=== PATIENT | female | born 1975 | race African-American/Black ===

== ENCOUNTER 2016-10-13 19:07 | Emergency (ER) | payer SELFPAY ==
[~2016-10-13 19:07] MED LIST: PERC5TAB12 PO; PREN1TAB30
[2016-10-13 19:09] VITALS: BP 185/97; PULSE 99; RESP 16; TEMP 99.2; O2SAT 100
[2016-10-13 20:49] LABS: BACTERIA, URINE RARE /hpf; BLOOD, URINE LARGE (NEG); COMMENT (UR) CULTURE INDICATED; CULTURE IF INDICATED CULTURE INDICATED; GLUCOSE,URINE NEG (NEG); KETONE, URINE TRACE mg/dL (NEG); MUCUS URINE MOD /lpf (OCC); NITRITE,URINE POS (NEG); PH, URINE 5.5 (5.0-8.5); SQUAMOUS EPITHELIAL CELL URINE 2 /hpf (0-5); URINE COLOR YELLOW (YELLW/STRAW)
[2016-10-13] MEDS ORDERED: MACR100C2 PO (22:29)
--- NOTE | 2016-10-13 22:29 | PD ---
HPI Chief Complaint: Complaint Time Seen by Provider: 22:11 Travel History International Travel<30 days: No Contact w/Intl Traveler<30days: No Traveled to known affect area: No History of Present Illness HPI Patient is a 40 year old female who comes in complaining of urinary frequency, urgency and pain with urination. She says this has been going on for two days. She denies fever or chills. She denies nausea or vomiting. She denies vaginal discharge. [facility] Past Medical History Diminished Hearing: No Hypertension: Yes (DURING ) Immunizations Current: No ?: Unknown LMP: 09/18/16 : 4 Para: 4 Past Surgical History Section: Yes (X3) Gynecologic Surgery: Yes () Social History Alcohol Use: No Tobacco Use: No Substance Use: No Allergies-Medications (Allergen,Severity, Reaction): Coded Allergies: No Known Allergies (Verified , 10/13/16) Reported Meds & Prescriptions Reported Meds & Active Scripts Active Review of Systems General / Constitutional: No: Fever, Chills HENT: No: Headaches, Lightheadedness Cardiovascular: No: Chest Pain or Discomfort Respiratory: No: Shortness of Breath Gastrointestinal: No: Nausea, Vomiting, Abdominal Pain Genitourinary: Positive: Urgency, Frequency, Dysuria, Flank Pain Skin: No Rash, No Change in Pigmentation Neurologic: No: Weakness, Dizziness Physical Exam Narrative GENERAL: Awake and alert, no acute distress. SKIN: Focused skin assessment warm/dry. HEAD: Atraumatic. Normocephalic. EYES: Pupils equal and round. No scleral icterus. ENT: No nasal bleeding or discharge. Mucous membranes pink and moist. CARDIOVASCULAR: Regular rate and rhythm. No murmur appreciated. RESPIRATORY: No accessory muscle use. Clear to auscultation. Breath sounds equal bilaterally. GASTROINTESTINAL: Abdomen soft, non-tender, nondistended. Hepatic and splenic margins not palpable. No CVA tenderness. NEUROLOGICAL: Awake and alert. No obvious cranial nerve deficits. Motor grossly within normal limits. Normal speech. Data Data Last Documented VS Vital Signs Date Time Temp Pulse Resp B/P (MAP) Pulse Ox O2 Delivery O2 Flow Rate FiO2 10/13/16 19:09 99.2 99 16 185/97 (126) 100 Room Air Orders Orders Urinalysis - C+S If Indicated (10/13/16 20:04) Ed Urine Pregnancytest Poc (10/13/16 20:04) Urine Culture (10/13/16 20:08) Labs Laboratory Tests Test 10/13/16 20:08 Urine Color YELLOW Urine Turbidity HAZY Urine pH 5.5 Urine Specific [place] 1.032 Urine Protein 100 mg/dL Urine Glucose (UA) NEG mg/dL Urine Ketones TRACE mg/dL Urine Occult Blood LARGE Urine Nitrite POS Urine Bilirubin NEG Urine Urobilinogen 2.0 MG/DL Urine Leukocyte Esterase LARGE Urine RBC 20 /hpf Urine WBC 154 /hpf Urine Squamous Epithelial Cells 2 /hpf Urine Amorphous Sediment RARE Urine Bacteria RARE /hpf Urine Mucus MOD /lpf Microscopic Urinalysis Comment CULTURE INDICATED MDM Medical Decision Making Medical Screen Exam Complete: Yes Emergency Medical Condition: Yes Medical Record Reviewed: Yes Differential Diagnosis UTI versus pyelonephritis versus bacterial vaginosis Narrative Course Patient is a 40-year-old female comes in complaining of urinary frequency, urgency, dysuria. Exam shows no acute abnormalities. Urinalysis is positive for UTI. She'll be discharged with a prescription for Macrobid. She is advised follow-up with her doctor. Advised to return to the ED as needed for any worsening symptoms. Diagnosis Primary Impression: UTI (urinary tract infection) Qualified Codes: N30.00 - Acute cystitis without hematuria Patient Instructions: General Instructions, Urinary Tract Infection in Women ( ED) Additional Instructions: Drink plenty of fluids. Take all of your antibiotic. Return to the ED as needed for any worsening symptoms. Follow-up with her doctor. Scripts Nitrofurantoin Monohydrate Macrocrystals (Macrobid) 100 Mg Capsule 100 MG PO BID for Infection for 5 Days, CAP 0 Refills Prov: Rhiannon Kim MD 10/13/16 Disposition: 01 DISCHARGE HOME Condition: Stable Rhiannon Kim MD Oct 13, 2016 22:29
== END 2016-10-13 22:48 | disposition home or self-care (01) ==
LOC: NEPD 19:07
DX: N30.00 Acute cystitis without hematuria (principal); B96.20 Unspecified Escherichia coli [E. coli] as the cause of diseases classified elsewhere
CPT/HCPCS: 81001; 84703; 87077; 87086; 87186; 99283

== ENCOUNTER 2017-05-19 12:38 | Emergency (ER) | payer MEDICAID ==
[~2017-05-19 12:38] MED LIST changes: +MACR100C2 PO; -PERC5TAB12 PO; -PREN1TAB30
[2017-05-19 13:56] LABS: AUTOMATED NEUTROPHIL # 4.2 TH/MM3 (1.8-7.7); BASOPHIL % 0.2 % (0.0-2.0); EOSINOPHIL # 0.1 TH/MM3 (0-0.4); EOSINOPHIL % 1.1 % (0.0-4.0); HEMATOCRIT 35.3 % (35.0-46.0); LYMPH % 19.4 % (9.0-44.0); LYMPHOCYTE # 1.1 TH/MM3 (1.0-4.8); MEAN CELL VOLUME 83.5 FL (80.0-100.0); MEAN CORPUSCULAR HEMOGLOBIN 28.3 PG (27.0-34.0); MEAN CORPUSCULAR HGB CONC 33.9 % (32.0-36.0); MEAN PLATELET VOLUME 7.6 FL (7.0-11.0); MONO % 6.7 % (0.0-8.0); MONOCYTE # 0.4 TH/MM3 (0-0.9); NEUT % 72.6 % (16.0-70.0); PLATELET COUNT 200 TH/MM3 (150-450); RED BLOOD COUNT 4.23 MIL/MM3 (4.00-5.30); RED CELL DISTRIBUTION WIDTH 18.9 % (11.6-17.2); WHITE BLOOD COUNT 5.8 TH/MM3 (4.0-11.0)
[2017-05-19 14:19] LABS: AST (GOT) 12 U/L (15-37); BICARBONATE 23.9 MEQ/L (21.0-32.0); BLOOD UREA NITROGEN 4 MG/DL (7-18); CALCIUM 8.4 MG/DL (8.5-10.1); CHLORIDE 105 MEQ/L (98-107); CREATININE 0.54 MG/DL (0.50-1.00); GLOMERULAR FILTRATION RATE 151 ML/MIN (>89); GLUCOSE,RANDOM 82 MG/DL (74-106); SODIUM (NA) 138 MEQ/L (136-145)
[2017-05-19 14:21] LABS: ALT (GPT) 12 U/L (10-53)
[2017-05-19 14:23] LABS: ALKALINE PHOSPHATASE 72 U/L (45-117); TOTAL BILIRUBIN ADULT 0.6 MG/DL (0.2-1.0); TOTAL PROTEIN 7.3 GM/DL (6.4-8.2)
--- NOTE | 2017-05-19 15:13 | PD ---
HPI Chief Complaint increased bp Date Seen: May 19, 2017 Time Seen: 15:06 Travel History International Travel<30 Days: No Contact w/Intl Traveler<30Days: No Known Affected Area: No History of Present Illness HPI pt. is a @ 30 5/[address] Sena's office 2/2 increased bp. pt. was seen and noted to have bp's 150's/90's. pt. w/o c/o. no quinones/ visual changes, no cp/sob, no n/v, no urinary probs.+FM, no lof/vb, no ctxs. Weeks Gestation: 30 Para: 5 : 6 Last Menstrual Period: May 19, 2017 History Past Medical History Medical History: Denies Significant Hx Obstetric History Obstetric History , x 1, cd x4 Past Surgical History Narrative Surgical x 4 Family History Family History: Negative Social History Alcohol Use: No Tobacco Use: No Substance Abuse: No Allergies-Medications (Allergen,Severity, Reaction): Coded Allergies: No Known Allergies (Verified , 10/13/16) Home Meds Active Scripts Nitrofurantoin Monohydrate Macrocrystals (Macrobid) 100 Mg Capsule, 100 MG PO BID for Infection for 5 Days, CAP 0 Refills Prov:Rhiannon Kim MD 10/13/16 Review of Systems Except as stated in HPI: all other systems reviewed are Neg Physical Exam Narrative GENERAL: Well-nourished, well-developed patient. SKIN: Warm and dry. HEAD: Normocephalic and atraumatic. EYES: No scleral icterus. No injection or drainage. ENT: No nasal drainage noted. Mucous membranes pink. Airway patent. NECK: Supple, trachea midline. No JVD. CARDIOVASCULAR: Regular rate and rhythm without murmurs, gallops, or rubs. RESPIRATORY: Breath sounds equal bilaterally. No accessory muscle use. ABDOMEN/GI: Abdomen soft, non-tender, bowel sounds present, no rebound, no guarding Gravid FHT's: Category: 1 Reactive:+ Variability: mod EXTREMITIES: No cyanosis or edema. BACK: Nontender without obvious deformity. No CVA tenderness. NEUROLOGICAL: Awake and alert. Motor and sensory grossly within normal limits. Five out of 5 muscle strength in all muscle groups. Normal speech. Data Data Vital Signs Reviewed: Yes Orders Orders Complete Blood Count With Diff (05/19/17 13:36) Comprehensive Metabolic Panel (05/19/17 13:36) Uric Acid (05/19/17 13:36) Protein Creat Ratio, Random Ur (05/19/17 13:36) Materials Supervisor Clear For Discharge (05/19/17 ) Labs Laboratory Tests Test 05/19/17 12:55 05/19/17 13:35 Urine Random Creatinine 181 Urine Random Total Protein 31 Urine Protein/Creatinine Ratio 0.17 White Blood Count 5.8 Red Blood Count 4.23 Hemoglobin 12.0 Hematocrit 35.3 Mean Corpuscular Volume 83.5 Mean Corpuscular Hemoglobin 28.3 Mean Corpuscular Hemoglobin Concent 33.9 Red Cell Distribution Width 18.9 Platelet Count 200 Mean Platelet Volume 7.6 Neutrophils (%) (Auto) 72.6 Lymphocytes (%) (Auto) 19.4 Monocytes (%) (Auto) 6.7 Eosinophils (%) (Auto) 1.1 Basophils (%) (Auto) 0.2 Neutrophils # (Auto) 4.2 Lymphocytes # (Auto) 1.1 Monocytes # (Auto) 0.4 Eosinophils # (Auto) 0.1 Basophils # (Auto) 0.0 CBC Comment DIFF FINAL Differential Comment Blood Urea Nitrogen 4 Creatinine 0.54 Random Glucose 82 Total Protein 7.3 Albumin 3.0 Calcium Level 8.4 Uric Acid 3.1 Alkaline Phosphatase 72 Aspartate Amino Transf (AST/SGOT) 12 Alanine Aminotransferase (ALT/SGPT) 12 Total Bilirubin 0.6 Sodium Level 138 Potassium Level 3.0 Chloride Level 105 Carbon Dioxide Level 23.9 Anion Gap 9 Estimat Glomerular Filtration Rate 151 MDM Medical Record Reviewed: Yes Plan pt. to be d/c to home. pt. w/ increased bp and will start on labetalol 100mg po bid. pt. also w/ low K+, will give kcl 40meq daily for 7 days. condition d/ w pt. all ? answered. pt. given precautions for return. f/u as sched. Diagnosis Diagnosis: Primary Impression: Hypertension affecting Additional Impression: 30 weeks gestation of Disposition: DISCHARGE HOME Patient Instructions: General Instructions Departure Forms: Tests/Procedures Jeromy Simms Jr., MD May 19, 2017 15:13
== END 2017-05-19 15:28 | disposition home or self-care (01) ==
LOC: HOBED 12:38
DX: O16.3 Unspecified maternal hypertension, third trimester (principal); Z3A.30 30 weeks gestation of pregnancy
CPT/HCPCS: 36415; 80053; 82570; 84156; 84550; 85025; 99283

== ENCOUNTER 2017-07-17 10:31 | Inpatient (IN) | payer MEDICAID ==
[~2017-07-17] VITALS: Ht 160 cm; Wt 108.0 kg
[2017-07-17] MEDS ORDERED: PREN29TA4 (11:34)
[2017-07-17] MEDS ORDERED: FERR325T18 PO (11:34)
[2017-07-17] MEDS ORDERED: ASPI-516 CHEW (11:34)
[2017-07-17] MEDS ORDERED: LABE100T2 PO ×2 (11:34→14:40)
[2017-07-17] MEDS ORDERED: CITRIC ACID-SODIUM CITRATE LIQ 30 ML UDC PO SCH (11:45)
[2017-07-17] MEDS ORDERED: ceFAZolin 2 GM PREMIX 50 ML IV SCH (11:45)
[2017-07-17] MEDS ORDERED: MORPHINE SULFATE PF 5 MG/10 ML VIAL ONE (11:52)
[2017-07-17] MEDS ORDERED: ACETAMINOPHEN 1000 MG/100 ML 100 ML IV ONE ×2 (11:52→13:45)
[2017-07-17 11:53] LABS: AUTOMATED NEUTROPHIL # 5.2 TH/MM3 (1.8-7.7); BASOPHIL % 0.3 % (0.0-2.0); EOSINOPHIL # 0.1 TH/MM3 (0-0.4); EOSINOPHIL % 0.8 % (0.0-4.0); HEMATOCRIT 38.6 % (35.0-46.0); HEMOGLOBIN 13.3 GM/DL (11.6-15.3); LYMPH % 22.2 % (9.0-44.0); LYMPHOCYTE # 1.6 TH/MM3 (1.0-4.8); MEAN CELL VOLUME 85.1 FL (80.0-100.0); MEAN CORPUSCULAR HEMOGLOBIN 29.2 PG (27.0-34.0); MEAN CORPUSCULAR HGB CONC 34.3 % (32.0-36.0); MEAN PLATELET VOLUME 8.2 FL (7.0-11.0); MONO % 6.6 % (0.0-8.0); MONOCYTE # 0.5 TH/MM3 (0-0.9); NEUT % 70.1 % (16.0-70.0); PLATELET COUNT 237 TH/MM3 (150-450); RED BLOOD COUNT 4.54 MIL/MM3 (4.00-5.30); RED CELL DISTRIBUTION WIDTH 14.6 % (11.6-17.2); WHITE BLOOD COUNT 7.4 TH/MM3 (4.0-11.0)
[2017-07-17] MEDS ORDERED: OXYTOCIN 10 UNIT/ML AMP IV ONE (12:00)
[2017-07-17] MEDS ORDERED: LACTATED RINGER'S 1000 ML IV ONE (12:00)
[2017-07-17] MEDS ORDERED: LACTATED RINGER'S 1000 ML INJ 2,000 ML IV ONE (12:00)
[2017-07-17] MEDS ORDERED: ONDANSETRON HCL 4 MG/2 ML VIAL IV ONE (12:00)
[2017-07-17] MEDS ORDERED: DEXAMETHASONE SOD PHOS 4 MG/ML VIAL IV ONE (12:00)
[2017-07-17] MEDS ORDERED: PHENYLEPH/NS 1000 MCG/10 ML SYR IV ONE (12:00)
[2017-07-17] MEDS ORDERED: LACTATED RINGER'S 1000 ML IV SCH (12:30)
[2017-07-17] MEDS ORDERED: ONDANSETRON ODT 4 MG TAB PO PRN (13:45)
[2017-07-17] MEDS ORDERED: SIMETHICONE 80 MG CHEWABLE TAB PO PRN (13:45)
[2017-07-17] MEDS ORDERED: SODIUM CHLORIDE 0.9% FLUSH 10 ML FLUSH IV FLUSH PRN (13:45)
[2017-07-17] MEDS ORDERED: OXYTOCIN 30 UNITS-500ML PREMIX 500 ML IV ONE (13:45)
[2017-07-17] MEDS ORDERED: ZOLPIDEM TARTRATE 5 MG TAB PO PRN (13:45)
[2017-07-17] MEDS ORDERED: oxyCODONE/ACETAMINOPHEN 5 MG/325 MG TAB PO PRN ×2 (13:45)
[2017-07-17] MEDS ORDERED: ACETAMINOPHEN 325 MG TAB PO PRN (13:45)
--- NOTE | 2017-07-17 13:58 | HHI.HP ---
HPI Chief Complaint Repeat Date Seen: Jul 17, 2017 Travel History International Travel<30 Days: No Contact w/Intl Traveler<30Days: No Known Affected Area: No History of Present Illness HPI Patient is a 41 year old at 39-1/7 weeks gestation who presents today for repeat . She denies any vaginal bleeding or discharge. No gush or leaking of fluid. She is feeling regular contractions. Positive movement. History Past Medical History Medical History: Denies Significant Hx Obstetric History Obstetric History s/p x 4 Past Surgical History Narrative Surgical x 4 Family History Family History: Negative Social History Alcohol Use: No Tobacco Use: No Substance Abuse: No Allergies-Medications (Allergen,Severity, Reaction): Coded Allergies: No Known Allergies (Verified Allergy, Unknown, 07/17/17) Home Meds Reported Medications Prenat 115/Iron Fum/Folic/Dss ( 19 Tablet) 29 Mg Iron-1 Mg-25 Mg Tablet 07/17/17 Aspirin (Aspirin) 81 Mg Chew, 81 MG CHEW DAILY, TAB 0 Refills 07/17/17 Ferrous Sulfate (Ferrous Sulfate) 325 Mg (65 Mg Iron) Tablet, 325 MG PO DAILY for Nutritional Supplement, #30 TAB 0 Refills 07/17/17 Labetalol (Labetalol) 100 Mg Tab, 100 MG PO BID for Blood Pressure Management, TAB 0 Refills 07/17/17 Discontinued Scripts Nitrofurantoin Monohydrate Macrocrystals (Macrobid) 100 Mg Capsule, 100 MG PO BID for Infection for 5 Days, CAP 0 Refills Prov:Rhiannon Kim MD 10/13/16 Review of Systems Except as stated in HPI: all other systems reviewed are Neg General / Constitutional: No: Fever, Chills Eyes: No: Blurred Vision, Visual changes HENT: No: Headaches Cardiovascular: No: Chest Pain or Discomfort Respiratory: No: Cough, Short of Breath Gastrointestinal: No: Nausea, Vomiting, Abdominal Pain Genitourinary: No: Hematuria, Pelvic Pain, Discharge, Vaginal Bleeding Musculoskeletal: No: Edema Neurologic: No: Headache Psychiatric: No: Substance Abuse Physical Exam Narrative GENERAL: Well-nourished, well-developed patient. SKIN: Warm and dry. HEAD: Normocephalic and atraumatic. EYES: No scleral icterus. No injection or drainage. ENT: No nasal drainage noted. Mucous membranes pink. Airway patent. NECK: Supple, trachea midline. No JVD. CARDIOVASCULAR: Regular rate and rhythm without murmurs, gallops, or rubs. RESPIRATORY: Breath sounds equal bilaterally. No accessory muscle use. ABDOMEN/GI: Abdomen soft, non-tender, bowel sounds present, no rebound, no guarding Gravid to 39 weeks size GENITOURINARY: Presentation: vertex Membranes: intact Uterine Contractions: q4-5min FHT's: Category: I Baseline: 140 Reactive: + Variability: moderate Decels: none EXTREMITIES: No cyanosis or edema. BACK: Nontender without obvious deformity. No CVA tenderness. NEUROLOGICAL: Awake and alert. Motor and sensory grossly within normal limits. Normal speech. Caprini VTE Risk Assessment Caprini VTE Risk Assessment: No/Low Risk (score <= 1) Caprini Risk Assessment Model Point Value = 1 Point Value = 2 Point Value = 3 Point Value = 5 Age 41-60 Minor surgery BMI > 25 kg/m2 Swollen legs Varicose veins or History of unexplained or recurrent spontaneous Oral contraceptives or hormone replacement Sepsis (< 1 month) Serious lung disease, including pneumonia (< 1 month) Abnormal pulmonary function Acute myocardial infarction Congestive heart failure (< 1 month) History of inflammatory bowel disease Medical patient at bed rest Age 61-74 Arthroscopic surgery Major open surgery (> 45 min) Laparoscopic surgery (> 45 min) Malignancy Confined to bed (> 72 hours) Immobilizing plaster cast Central venous access Age >= 75 History of VTE Family history of VTE Factor V Leiden Prothrombin [id number] Lupus anticoagulant Anticardiolipin antibodies Elevated serum homocysteine Heparin-induced thrombocytopenia Other congenital or acquired thrombophilia Stroke (< 1 month) Elective arthroplasty Hip, pelvis, or leg fracture Acute spinal cord injury (< 1 month) Prophylaxis Regimen Total Risk Factor Score Risk Level Prophylaxis Regimen 0-1 Low Early ambulation 2 Moderate Order ONE of the following: *Sequential Compression Device (SCD) *Heparin 5000 units SQ BID 3-4 Higher Order ONE of the following medications: *Heparin 5000 units SQ TID *Enoxaparin/Lovenox 40 mg SQ daily (WT < 150 kg, CrCl > 30 mL/min) *Enoxaparin/Lovenox 30 mg SQ daily (WT < 150 kg, CrCl > 10-29 mL/min) *Enoxaparin/Lovenox 30 mg SQ BID (WT < 150 kg, CrCl > 30 mL/min) AND/OR *Sequential Compression Device (SCD) 5 or more Highest Order ONE of the following medications: *Heparin 5000 units SQ TID (Preferred with Epidurals) *Enoxaparin/Lovenox 40 mg SQ daily (WT < 150 kg, CrCl > 30 mL/min) *Enoxaparin/Lovenox 30 mg SQ daily (WT < 150 kg, CrCl > 10-29 mL/min) *Enoxaparin/Lovenox 30 mg SQ BID (WT < 150 kg, CrCl > 30 mL/min) AND *Sequential Compression Device (SCD) Data Data Vital Signs Reviewed: Yes Orders Orders Admit To Inpatient (07/17/17 ) Code Status (07/17/17 11:41) Type And Screen (07/17/17 11:41) Complete Blood Count With Diff (07/17/17 11:41) Urinalysis - C+S If Indicated (07/17/17 11:41) Drug Screen, Random Urine (07/17/17 11:41) Lactated Ringer's 1000 Ml Inj (Lr 1000 M (07/17/17 12:00) Lactated Ringer's 1000 Ml Inj (Lr 1000 M (07/17/17 12:30) Citric Acid-Sodium Citrate Liq (Bicitra (07/17/17 11:45) Cefazolin 2 Gm Premix (Ancef 2 Gm Premix (07/17/17 11:45) Morphine Pf Inj (Duramorph Pf 0.5 Mg/Ml (07/17/17 11:52) Acetaminophen 1000 Mg/100 Ml (Ofirmev 10 (07/17/17 11:52) Basic Metabolic Panel (Bmp) (07/17/17 12:26) Vital Signs (Adult) Q4HX24,Q12H (07/17/17 13:37) Activity Bed Rest (07/17/17 13:37) ^ Discontinue (07/18/17 13:37) Remove Dressing (07/18/17 13:37) ^ Binder (07/17/17 ) ^ Rhogam (07/17/17 13:37) Diet Regular Basic (07/17/17 Lunch) Lactated Ringer's 1000 Ml Inj (Lr 1000 M (07/17/17 18:37) Oxytocin 30 Units-500ml Premix (Pitocin (07/17/17 13:45) Oxytocin 30 Units-500ml Premix (Pitocin (07/17/17 18:45) Sodium Chloride 0.9% Flush (Ns Flush) (07/17/17 21:00) Sodium Chloride 0.9% Flush (Ns Flush) (07/17/17 13:45) Simethicone Chew (Mylicon Chew) (07/17/17 13:45) Acetaminophen (Tylenol) (07/17/17 13:45) Acetaminophen 1000 Mg/100 Ml (Ofirmev 10 (07/17/17 13:45) Ibuprofen (Motrin) (07/17/17 13:45) Oxycodone-Acetamin 5-325 Mg (Percocet (07/17/17 13:45) Oxycodone-Acetamin 5-325 Mg (Percocet (07/17/17 13:45) Cefazolin Inj (Ancef Inj) (07/17/17 13:45) Docusate Sodium-Senna (Yvette-Colace) (07/17/17 13:45) Zolpidem (Ambien) (07/17/17 13:45) Bgjtysd-Unbqt-Klxsmmq Inj (M-M-R Ii Inj) (07/18/17 16:00) Ydbr-Idu-Vfuzcd (Booster) Inj (Boostrix (07/18/17 16:00) Complete Blood Count With Diff (07/18/17 06:00) Remove Urinary Catheter .ONCE (07/18/17 13:37) Ondansetron Odt (Zofran Odt) (07/17/17 13:45) Group B Strep: Negative Labs Laboratory Tests Test 07/17/17 11:10 White Blood Count 7.4 Red Blood Count 4.54 Hemoglobin 13.3 Hematocrit 38.6 Mean Corpuscular Volume 85.1 Mean Corpuscular Hemoglobin 29.2 Mean Corpuscular Hemoglobin Concent 34.3 Red Cell Distribution Width 14.6 Platelet Count 237 Mean Platelet Volume 8.2 Neutrophils (%) (Auto) 70.1 Lymphocytes (%) (Auto) 22.2 Monocytes (%) (Auto) 6.6 Eosinophils (%) (Auto) 0.8 Basophils (%) (Auto) 0.3 Neutrophils # (Auto) 5.2 Lymphocytes # (Auto) 1.6 Monocytes # (Auto) 0.5 Eosinophils # (Auto) 0.1 Basophils # (Auto) 0.0 CBC Comment DIFF FINAL Differential Comment Assessment/Plan Assessment and Plan 41 year old at 39-1/7 weeks gestation. 1. IUP- Category I tracing, reassuring. 2. Repeat - previous x 4 3. GBS negative. Sloane Sotelo Dr., MD R3 Jul 17, 2017 13:58
--- NOTE | 2017-07-17 14:12 | PD.OP ---
Operative Report Date of Surgery: Jul 17, 2017 Preoperative Diagnosis: IUP AT 39 WEEKS, PREVIOUS C/S Postoperative Diagnosis: SAME Procedure: Repeat Low Transverse Section Anesthesia: Spinal Surgeon: Erma Sena MD Pattern Data Operator(s): Yanni Perales Resident Surgeon: Sloane Marrero MD Operation and Findings: PREOPERATIVE DIAGNOSIS: 1. Intrauterine at 39-1/7 weeks gestation. 2. Repeat . POSTOPERATIVE DIAGNOSIS: 1. Intrauterine at 39-1/7 weeks gestation. 2. Repeat . 3. Thick meconium OPERATION: Repeat Low Transverse Section. ANESTHESIA: Spinal. SURGEON: Herbie Sena MD. COSURGEON: Sloane Marrero MD R3. FINDINGS: A normal female with APGARS of 8 and 9, weight 3215g. The uterus was normal. The tubes were normal in length and caliber, the ovaries were normal. The cul-de-sac was normal. COMPLICATIONS: None. COUNTS: The counts were correct. ESTIMATED BLOOD LOSS: 500 cc. FLUIDS: Crystalloids. FINDINGS: The patient tolerated the procedure well and went to the Recovery Room in good condition. PROCEDURE: She was taken to the operating room, identified by name band and verbally given a spinal anesthetic and under adequate level she was prepped and draped in the usual sterile manner for a section. A time out was taken and once agreed upon a Pfannenstiel incision was made and the old scar removed. The incision was taken down to the fascia, the fascia was taken off the rectus muscle by sharp dissection. The rectus muscles were spread bluntly and the peritoneum was entered under direct vision after careful reduction of adhesions and scar tissue. The incision was extended with care to avoid the urinary bladder. The bladder blade was placed and the bladder flap was created in the usual fashion. A transverse incision along the lower uterine segment was made and bluntly extended. Thick meconium was noted on membrane rupture. The head was delivered with gentle fundal pressure without difficulty and then the rest of the body was delivered without difficulty. Cord clamping was delayed for 45 seconds and then the baby was handed to the baby nurse. Cord blood was obtained and the placental was delivered manually. The uterus was curettaged twice with a wet lap. The uterine incision was then repaired with the 0 Vicryl in a running fashion, the second layer imbricating the first with excellent results. The incision was then irrigated. Hemostasis was achieved with an additional figure of eight suture and hemostasis was excellent. The cul-de-sac was lightly irrigated and cleaned of blood and debris and the uterus was delivered back into the abdomen. All incisions were then inspected and were hemostatic. The rectus muscle was reapproximated with 0 Vicryl in a running fashion. The fascia was repaired with 0 Vicryl in a running fashion and then irrigated. The subcutaneous was repaired with running 3-0 Vicryl and the skin was repaired with 4-0 Monocryl in a subcuticular manner. A pressure dressing was applied. The patient tolerated the procedure well and went to the recovery room in good condition. All counts were correct. Sloane Marrero MD R3 Jul 17, 2017 14:12 Herbie Sena MD Jul 17, 2017 14:57
--- NOTE | 2017-07-17 14:19 | MH ---
cc: Herbie Sena MD DATE OF ADMISSION: 07/17/2017 DATE OF ADMISSION: 07/17/2017 HISTORY OF PRESENT ILLNESS: The patient is a 41-year-old black female, para 5-0-0-5, at 39 weeks. She has a history of section x5 and is coming in for a repeat . She began having labor this morning and possible rupture of membranes. Her course has been complicated by hypertension, which has been controlled well with labetalol 100 mg twice a day. She is a grand multip and has had hypokalemia during the as well. She has done well, the baby has done well and we expect no problems. PAST OB HISTORY: She is para 5-0-0-5. She has 1 adopted daughter. Her cultures were negative. PAST GAS SUBSTATION OPERATOR HISTORY: Negative. PAST MEDICAL HISTORY: Remarkable for chronic hypertension. PAST SURGICAL HISTORY: Remarkable for x5. SOCIAL HISTORY: She does not smoke, drink or take drugs and she is single. FAMILY HISTORY: Remarkable for high blood pressure, breast cancer, Alzheimer's, diabetes and alcohol abuse. ALLERGIES: NO KNOWN DRUG ALLERGIES. CURRENT MEDICATIONS: 1. vitamins 1 p.o. daily. 2. Aspirin 81 mg 1 p.o. daily. 3. Iron 1 p.o. every day. 4. Potassium chloride ER 20 mEq 1 p.o. every day. 5. Labetalol 100 mg 1 p.o. b.i.d. REVIEW OF SYSTEMS: No headaches, shortness of breath. No chest pain or pressure. The baby is moving well. She is having regular uterine contractions, but does not have any rupture of membranes or bleeding. PHYSICAL EXAMINATION: GENERAL: Reveals a well-developed, well-nourished female, in no acute distress. CHEST: Clear. HEART: Has a regular rate and rhythm. ABDOMEN: Soft, gravid, nontender. PELVIC: Exam is deferred. EXTREMITIES: No clubbing, cyanosis or edema. ASSESSMENT AND PLAN: 1. Intrauterine at 39 weeks. 2. section x5. We will go for repeat today. 3. Hypertension. Her blood pressure is well controlled on the labetalol. We will follow that . 4. Grand multiparity. I have advised her not to have any more babies and we will discuss that later. 5. Hypokalemia. We are going to check her potassium and make sure that is okay. R. MD SVITLANA Ball/BONG , 01:58 PM , 02:18 PM
[2017-07-17] MEDS ORDERED: OXYC1TAB63 PO (14:40)
[2017-07-17] MEDS ORDERED: IBUP-232 PO (14:40)
--- NOTE | 2017-07-17 14:41 | HHI.DCPOC ---
Discharge Care Plan Diagnosis: (1) Hypertension affecting in third trimester (2) delivery delivered Report Symptoms to Your Doctor -Temperature above 100.5 degrees -Redness, of incision or excessive or foul smelling drainage -Unusual pain or calf pain -Increased vaginal bleeding -Painful or difficulty urinating -Feelings of extreme sadness or anxiety after 2 weeks Goals to Promote Your Health * To prevent worsening of your condition and complications * To maintain your health at the optimal level Directions to Meet Your Goals Take your medications as prescribed Follow your dietary instruction Follow activity as directed Ensure plenty of rest for recovery Drink fluids for hydration Keep your appointments as scheduled Take your immunizations and boosters as scheduled If your symptoms worsen call your PCP, if no PCP go to Urgent Care Center or Emergency Room Smoking is Dangerous to Your Health. Avoid second hand smoke Call the 24-hour crisis hotline for domestic abuse at Herbie Sena MD Jul 17, 2017 14:41
[2017-07-17 15:23] LABS: BILIRUBIN, URINE NEG (NEG); BLOOD, URINE MOD (NEG); GLUCOSE,URINE NEG (NEG); HYALINE CAST, URINE 31 /lpf (RARE); KETONE, URINE 150 mg/dL (NEG); MUCUS URINE MANY /lpf (OCC); NITRITE,URINE NEG (NEG); PH, URINE 6.5 (5.0-8.5); URINE COLOR DARK-YELLOW (YELLW/STRAW); URINE LEUKOCYTE ESTERASE MOD (NEG)
[2017-07-17 16:20] LABS: BICARBONATE 24.7 MEQ/L (21.0-32.0); CALCIUM 8.8 MG/DL (8.5-10.1); CREATININE 0.49 MG/DL (0.50-1.00)
[2017-07-17] MEDS ORDERED: LACTATED RINGER'S 1000 ML INJ 1,000 ML IV SCH (18:37)
[2017-07-17] MEDS ORDERED: OXYTOCIN 30 UNITS-500ML PREMIX 500 ML IV PRN (18:45)
[2017-07-17] MEDS ORDERED: SODIUM CHLORIDE 0.9% FLUSH 10 ML FLUSH IV FLUSH SCH (21:00)
[2017-07-17 21:16] VITALS: BP 149/83; PULSE 72; RESP 18; TEMP 97.8
[2017-07-17] MEDS: LABETALOL HCL 100 MG TAB PO SCH (21:18)
[2017-07-18] VITALS: BP 136/79; PULSE 79; RESP 18; TEMP 98.6
[2017-07-18 04:25] VITALS: BP 142/88; PULSE 85; RESP 18; TEMP 98.1
[2017-07-18 05:35] LABS: AUTOMATED NEUTROPHIL # 6.2 TH/MM3 (1.8-7.7); BASOPHIL % 0.3 % (0.0-2.0); EOSINOPHIL # 0.1 TH/MM3 (0-0.4); EOSINOPHIL % 0.7 % (0.0-4.0); HEMATOCRIT 32.5 % (35.0-46.0); HEMOGLOBIN 11.1 GM/DL (11.6-15.3); LYMPH % 19.8 % (9.0-44.0); LYMPHOCYTE # 1.7 TH/MM3 (1.0-4.8); MEAN CELL VOLUME 86.6 FL (80.0-100.0); MEAN CORPUSCULAR HEMOGLOBIN 29.6 PG (27.0-34.0); MEAN CORPUSCULAR HGB CONC 34.1 % (32.0-36.0); MEAN PLATELET VOLUME 7.6 FL (7.0-11.0); MONO % 6.6 % (0.0-8.0); MONOCYTE # 0.6 TH/MM3 (0-0.9); NEUT % 72.6 % (16.0-70.0); PLATELET COUNT 186 TH/MM3 (150-450); RED BLOOD COUNT 3.76 MIL/MM3 (4.00-5.30); WHITE BLOOD COUNT 8.5 TH/MM3 (4.0-11.0)
[2017-07-18] MEDS: LABETALOL HCL 100 MG TAB PO SCH ×2 (09:00→22:40)
--- NOTE | 2017-07-18 09:12 | HHI.OB ---
Subjective Post Operative Day: 1 Remarks doing well, no N/V Objective Vitals/I&O Vital Signs Date Time Temp Pulse Resp B/P (MAP) Pulse Ox O2 Delivery O2 Flow Rate FiO2 07/18/17 04:25 98.1 85 18 142/88 (106) 07/18/17 00:00 98.6 79 18 136/79 (98) 07/17/17 21:16 97.8 72 18 149/83 (105) Result Diagram: 07/18/17 0521 07/17/17 1547 Objective Remarks GENERAL: Well-nourished, well-developed patient. CARDIOVASCULAR: Regular rate and rhythm without murmurs, gallops, or rubs. RESPIRATORY: Breath sounds equal bilaterally. No accessory muscle use. ABDOMEN/GI: Abdomen soft, non-tender, bowel sounds present. Incision: dressing Clean, dry and intact. Fundus: Firm, non-tender at umbilicus. GENITOURINARY: Light to moderate bleeding. EXTREMITIES: No cyanosis or edema, non-tender, without signs of DVT. Medications and IVs Current Medications Medications (Trade) Dose Ordered Sig/Michelle Route Start Time Stop Time Status Last Admin Lactated Ringer's 1,000 ml @ 100 mls/hr Q10H IV 07/17/17 18:37 07/18/17 14:36 Oxytocin 500 ml @ 100 mls/hr UNSCH X1 PRN IV 07/17/17 18:45 07/18/17 18:44 (NS Flush) 2 ml BID IV FLUSH 07/17/17 21:00 (NS Flush) 2 ml UNSCH PRN IV FLUSH 07/17/17 13:45 (Mylicon Chew) 80 mg QID PRN PO 07/17/17 13:45 (Tylenol) 650 mg Q6H PRN PO 07/17/17 13:45 (Motrin) 600 mg Q6H PRN PO 07/17/17 13:45 (Percocet 5-325 Mg) 1 tab Q4H PRN PO 07/17/17 13:45 (Percocet 5-325 Mg) 2 tab Q4H PRN PO 07/17/17 13:45 (Yvette-Colace) 2 tab Q12H PRN PO 07/17/17 13:45 (Ambien) 5 mg HS PRN PO 07/17/17 13:45 (M-M-R Ii Inj) 0.5 ml ONCE ONCE SQ 07/18/17 16:00 07/18/17 16:01 (Boostrix Inj) 0.5 ml ONCE ONCE IM 07/18/17 16:00 07/18/17 16:01 (Zofran Odt) 4 mg Q4H PRN PO 07/17/17 13:45 (Trandate) 100 mg BID PO 07/17/17 21:00 07/17/17 21:18 Assessment/Plan Assessment and Plan 41 year old at 39-1/7 weeks gestation. S/P repeat C/S POD #1 1. IUP- Category I tracing, reassuring. 2. Repeat - previous x 4 3. GBS negative. radha Sena Discharge Planning routine Attending Attestation pt seen by Soo Barlow MD Jul 18, 2017 09:12
[2017-07-18] MEDS ORDERED: DIPHTH/TETANUS/ACEL PERTUSSIS (BOOSTER) 0.5 ML VIAL/PFS IM ONE (16:00)
[2017-07-18] MEDS ORDERED: MEASLES, MUMPS, RUBELLA VACCINE 0.5 ML VIAL SQ ONE (16:00)
[2017-07-18] MEDS: IBUPROFEN 600 MG TAB PO PRN ×2 (16:52→22:38)
[2017-07-18] MEDS: DOCUSATE SODIUM 50 MG/SENNA 8.6 MG TAB PO PRN (22:37)
[2017-07-19 08:00] VITALS: BP 139/82; PULSE 78; RESP 20; TEMP 98.5; O2SAT 99
[2017-07-19] MEDS: IBUPROFEN 600 MG TAB PO PRN ×2 (08:04→21:15)
[2017-07-19] MEDS: LABETALOL HCL 100 MG TAB PO SCH ×2 (08:04→21:15)
--- NOTE | 2017-07-19 08:44 | HHI.OB ---
Subjective Post Operative Day: 2 Remarks doing well, ambulating Objective Vitals/I&O vss afeb Result Diagram: 07/18/17 0521 07/17/17 1547 Objective Remarks GENERAL: Well-nourished, well-developed patient. CARDIOVASCULAR: Regular rate and rhythm without murmurs, gallops, or rubs. RESPIRATORY: Breath sounds equal bilaterally. No accessory muscle use. ABDOMEN/GI: Abdomen soft, non-tender, bowel sounds present. Incision: Clean, dry and intact. Fundus: Firm, non-tender at umbilicus. GENITOURINARY: Light to moderate bleeding. EXTREMITIES: No cyanosis or edema, non-tender, without signs of DVT. Medications and IVs Current Medications Medications (Trade) Dose Ordered Sig/Michelle Route Start Time Stop Time Status Last Admin (NS Flush) 2 ml BID IV FLUSH 07/17/17 21:00 (NS Flush) 2 ml UNSCH PRN IV FLUSH 07/17/17 13:45 (Mylicon Chew) 80 mg QID PRN PO 07/17/17 13:45 (Tylenol) 650 mg Q6H PRN PO 07/17/17 13:45 (Motrin) 600 mg Q6H PRN PO 07/17/17 13:45 07/19/17 08:04 (Percocet 5-325 Mg) 1 tab Q4H PRN PO 07/17/17 13:45 (Percocet 5-325 Mg) 2 tab Q4H PRN PO 07/17/17 13:45 (Yvette-Colace) 2 tab Q12H PRN PO 07/17/17 13:45 07/18/17 22:37 (Ambien) 5 mg HS PRN PO 07/17/17 13:45 (Zofran Odt) 4 mg Q4H PRN PO 07/17/17 13:45 (Trandate) 100 mg BID PO 07/17/17 21:00 07/19/17 08:04 Assessment/Plan Problem List: (1) delivery delivered ICD Codes: O82 - delivery delivered Status: Acute Assessment and Plan 41 year old at 39-1/7 weeks gestation. S/P repeat C/S POD #2 Repeat - previous x 4. GBS negative. Discharge Planning routine Attending Attestation pt seen by Soo Barlow MD Jul 19, 2017 08:44
[2017-07-19] MEDS: DOCUSATE SODIUM 50 MG/SENNA 8.6 MG TAB PO PRN (21:15)
[2017-07-20] MEDS: LABETALOL HCL 100 MG TAB PO SCH ×2 (09:03→20:52)
--- NOTE | 2017-07-20 09:07 | HHI.OB ---
Subjective Post Operative Day: 3 Objective Result Diagram: 07/18/17 0521 07/17/17 1547 Objective Remarks GENERAL: Well-nourished, well-developed patient. CARDIOVASCULAR: Regular rate and rhythm without murmurs, gallops, or rubs. RESPIRATORY: Breath sounds equal bilaterally. No accessory muscle use. ABDOMEN/GI: Abdomen soft, non-tender, bowel sounds present. Incision: Clean, dry and intact. Fundus: Firm, non-tender at umbilicus. GENITOURINARY: Light to moderate bleeding. EXTREMITIES: No cyanosis, +1 edema to lower extremities, non-tender, without signs of DVT. Medications and IVs Current Medications Medications (Trade) Dose Ordered Sig/Michelle Route Start Time Stop Time Status Last Admin (NS Flush) 2 ml BID IV FLUSH 07/17/17 21:00 (NS Flush) 2 ml UNSCH PRN IV FLUSH 07/17/17 13:45 (Mylicon Chew) 80 mg QID PRN PO 07/17/17 13:45 (Tylenol) 650 mg Q6H PRN PO 07/17/17 13:45 (Motrin) 600 mg Q6H PRN PO 07/17/17 13:45 07/19/17 21:15 (Percocet 5-325 Mg) 1 tab Q4H PRN PO 07/17/17 13:45 (Percocet 5-325 Mg) 2 tab Q4H PRN PO 07/17/17 13:45 (Yvette-Colace) 2 tab Q12H PRN PO 07/17/17 13:45 07/19/17 21:15 (Ambien) 5 mg HS PRN PO 07/17/17 13:45 (Zofran Odt) 4 mg Q4H PRN PO 07/17/17 13:45 (Trandate) 100 mg BID PO 07/17/17 21:00 07/19/17 21:15 Assessment/Plan Problem List: (1) delivery delivered ICD Codes: O82 - delivery delivered Status: Acute Assessment and Plan 41 year old at 39-1/7 weeks gestation. S/P repeat C/S POD #3 pt doing well pain well managed with oral pain medication bonding well with routine care Discharge Planning dc home today Radhika Morley Jul 20, 2017 09:07
--- NOTE | 2017-07-20 09:09 | HHI.DS ---
Admission Date Jul 17, 2017 at 10:31 Discharge Date: Jul 20, 2017 Admitting Diagnosis term previous c section Diagnosis: (1) S/P repeat low transverse Diagnosis: Principal ICD Codes: Z98.891 - History of uterine scar from previous surgery : Repeat : Female Brief History Patient is a 41 year old at 39-1/7 weeks gestation who presents today for repeat . She denies any vaginal bleeding or discharge. No gush or leaking of fluid. She is feeling regular contractions. Positive movement. Pt Condition on Discharge: Good Discharge Disposition: Discharge Home Discharge Instructions Diet Instructions: As Tolerated, No Restrictions Additional Diet Instructions: Drink at least 8 - 16 oz bottles of water a day Activities You Can Perform: Shower Only-No Bath Activities to Avoid: Prolonged Standing, Strenuous Activity, Sexual Activity Additional Activity Instruc.: No driving until off pain medications Do not lift anything heavier than your baby in an infant carrier Follow up Referrals: FLAT FINISHER - 1 Week @ [facility] [place] New Medications: Ibuprofen (Ibuprofen) 600 Mg Tab 600 MG PO Q6H PRN for CRAMPING, #30 TAB Oxycodone HCl/Acetaminophen (Oxycodone-Acetaminophen 5-325) 5 Mg-325 Mg Tablet 1-2 TAB PO Q4H PRN for moderate, #30 TAB Continued Medications: Labetalol (Labetalol) 100 Mg Tab 100 MG PO BID for Blood Pressure Management, #60 TAB 2 Refills (This prescription has been renewed) Prenat 115/Iron Fum/Folic/Dss ( 19 Tablet) 29 Mg Iron-1 Mg-25 Mg Tablet Discontinued Medications: Aspirin (Aspirin) 81 Mg Chew 81 MG CHEW DAILY, TAB 0 Refills Ferrous Sulfate (Ferrous Sulfate) 325 Mg (65 Mg Iron) Tablet 325 MG PO DAILY for Nutritional Supplement, #30 TAB 0 Refills Radhika Morley Jul 20, 2017 09:09
[2017-07-20] MEDS ORDERED: LABE200T2 PO (13:00)
[2017-07-20] MEDS ORDERED: LABETALOL HCL 100 MG TAB PO ONE ×2 (13:00→23:00)
[2017-07-21] MEDS ORDERED: LABETALOL HCL 200 MG TAB PO ONE (09:00)
[2017-07-21] MEDS ORDERED: LABETALOL HCL 100 MG TAB PO SCH ×2 (09:00→21:00)
--- NOTE | 2017-07-21 09:35 | HHI.OB ---
Subjective Post Operative Day: 4 Objective Result Diagram: 07/18/17 0521 07/17/17 1547 Objective Remarks GENERAL: Well-nourished, well-developed patient. CARDIOVASCULAR: Regular rate and rhythm without murmurs, gallops, or rubs. RESPIRATORY: Breath sounds equal bilaterally. No accessory muscle use. ABDOMEN/GI: Abdomen soft, non-tender, bowel sounds present. Incision: Clean, dry and intact. Fundus: Firm, non-tender at umbilicus. GENITOURINARY: Light to moderate bleeding. EXTREMITIES: No cyanosis, +1 edema to lower extremities, non-tender, without signs of DVT. Medications and IVs Current Medications Medications (Trade) Dose Ordered Sig/Michelle Route Start Time Stop Time Status Last Admin (NS Flush) 2 ml BID IV FLUSH 07/17/17 21:00 (NS Flush) 2 ml UNSCH PRN IV FLUSH 07/17/17 13:45 (Mylicon Chew) 80 mg QID PRN PO 07/17/17 13:45 (Tylenol) 650 mg Q6H PRN PO 07/17/17 13:45 (Motrin) 600 mg Q6H PRN PO 07/17/17 13:45 07/19/17 21:15 (Percocet 5-325 Mg) 1 tab Q4H PRN PO 07/17/17 13:45 (Percocet 5-325 Mg) 2 tab Q4H PRN PO 07/17/17 13:45 (Yvette-Colace) 2 tab Q12H PRN PO 07/17/17 13:45 07/19/17 21:15 (Ambien) 5 mg HS PRN PO 07/17/17 13:45 (Zofran Odt) 4 mg Q4H PRN PO 07/17/17 13:45 (Trandate) 100 mg BID PO 07/21/17 09:00 07/21/17 08:10 Assessment/Plan Problem List: (1) delivery delivered ICD Codes: O82 - delivery delivered Status: Acute (2) Hypertension affecting in third trimester ICD Codes: O16.3 - Unspecified maternal hypertension, third trimester Assessment and Plan 41 year old at 39-1/7 weeks gestation. S/P repeat C/S POD #4 pt doing well BP elevated yesterday, increased labetalol initial BP this am 181/92 pt was medicated, repeat BP 146/84 we will repeat at noon pain well managed with oral pain medication bonding well with routine care Discharge Planning dc home today Radhika Morley Jul 21, 2017 09:35
[2017-07-21 12:11] VITALS: BP 145/86; PULSE 76; RESP 20
== END 2017-07-21 15:46 | disposition home or self-care (01) | DRG 766 ==
LOC: H2EB 10:31 → H1EA 15:11
PROVIDERS: ADMIT Obstetrics & Gynecology; ATTEND Obstetrics & Gynecology
PROC: 10D00Z1 Extraction of Products of Conception, Low, Open Approach (ICD-10-PCS; principal; 2017-07-17)
PROC: 0HB7XZZ Excision of Abdomen Skin, External Approach (ICD-10-PCS; 2017-07-17)
DX: O34.219 Maternal care for unspecified type scar from previous cesarean delivery (principal); O16.4 Unspecified maternal hypertension, complicating childbirth; I10 Essential (primary) hypertension; O99.284 Endocrine, nutritional and metabolic diseases complicating childbirth; E87.6 Hypokalemia; O77.0 Labor and delivery complicated by meconium in amniotic fluid; Z37.0 Single live birth; Z3A.39 39 weeks gestation of pregnancy; Z64.1 Problems related to multiparity
CPT/HCPCS: 59025; 80048; 80307; 81001; 85025; 86850; 86900; 86901; 87086; 90715; J0131; J0690; J1100; J2274; J2370; J2405; J2590; J7120

== ENCOUNTER 2017-07-30 16:53 | Observation (INO) | payer MEDICAID ==
[2017-07-30] VITALS (7 sets, daily range): BP systolic 138–170; BP diastolic 86–101; PULSE 66–90; RESP 18; TEMP 99
[~2017-07-30 16:53] MED LIST changes: +IBUP-232 PO; +LABE200T2 PO; -MACR100C2 PO; +OXYC1TAB63 PO; +PREN29TA4
--- NOTE | 2017-07-30 17:13 | PD ---
HPI Chief Complaint elevated BP PP Date Seen: Jul 30, 2017 Time Seen: 17:15 Travel History International Travel<30 Days: No Contact w/Intl Traveler<30Days: No Known Affected Area: No History of Present Illness HPI Pt is a POD #13 s/p rCS. She is a pt of Dr. Sena. Pt has a h/o CSx5 , cHTN, AMA, hypoK. She had her rCS on 07/17. She was taking labetalol 100mg BID throughout her and BPs were stable. She states that she was seen on 07/23 in the clinic and had elevated BPs. Labetalol was increased to 300mg TID. On 07/27, she was seen again and Procardia 30mg was added. Today she followed up and BPs were 180/110. She was sent to triage for evaluation/ management. She denies TOSCANO, vision changes, or edema. Currently her baby. Para: 6 : 6 History Past Medical History Narrative Medical cHTN hypoK Obstetric History Obstetric History SVDx1 CSx5 Past Surgical History Narrative Surgical CSx5 Family History Narrative Family History cHTN breast cancer Alzheimer's EtOHism DM Social History Alcohol Use: No Tobacco Use: No Substance Abuse: No Allergies-Medications (Allergen,Severity, Reaction): Coded Allergies: No Known Allergies (Verified Allergy, Unknown, 07/17/17) Home Meds Active Scripts Labetalol (Labetalol) 200 Mg Tab, 200 MG PO BID for Blood Pressure Management, # 60 TAB 0 Refills Prov:Herbie Sena MD 07/20/17 Oxycodone HCl/Acetaminophen (Oxycodone-Acetaminophen 5-325) 5 Mg-325 Mg Tablet, 1-2 TAB PO Q4H Y for moderate, #30 TAB Prov:Herbie Sena MD 07/17/17 Ibuprofen (Ibuprofen) 600 Mg Tab, 600 MG PO Q6H Y for CRAMPING, #30 TAB Prov:Herbie Sena MD 07/17/17 Reported Medications Prenat 115/Iron Fum/Folic/Dss ( 19 Tablet) 29 Mg Iron-1 Mg-25 Mg Tablet 07/17/17 Review of Systems Except as stated in HPI: all other systems reviewed are Neg Physical Exam Narrative General: well developed, well nourished, no acute distress HEENT: normocephalic atraumatic, extraocular movements intact, neck supple Extremities: full range of motion, minimal edema Skin: normal coloration, no rashes, no suspicious skin lesions noted Neurologic: cranial nerves 2-12 grossly intact, normal muscle tone, normal gait Psychiatric: normal mood and affect, appropriate Data Data Vital Signs Reviewed: Yes Orders Orders Vital Signs (Adult) .ON ADMISSION (07/30/17 17:03) Urinalysis - C+S If Indicated (07/30/17 17:03) Cbc No Diff, Includes Plts (07/30/17 17:03) Comprehensive Metabolic Panel (07/30/17 17:03) Drug Screen, Random Urine (07/30/17 17:03) MDM Plan 41y/o POD#13 from rCS #5 with AMA, cHTN, and hypoK presents for worsening elevated BPs PP. -- preE labs ordered -- cycle BPs Dispo: -- labs stable -- BPs 150s-170s/90s-100s -- likely severe gHTN PP vs preE; recommend magnesium sulfate for sz ppx and to aid in diuresis -- AP obs orders placed including 10mg PO procardia x1 now Dr. Sena, sculpture conservator, notified of pt status and agrees with POC. Courtesy orders placed. He will assume care of the pt. Diagnosis Diagnosis: Primary Impression: state Additional Impressions: Chronic hypertension Elevated blood pressure reading in office with diagnosis of hypertension Grand multiparity Status post Michael Snow MD Jul 30, 2017 17:13
[2017-07-30 17:57] LABS: HEMOGLOBIN 12.7 GM/DL (11.6-15.3); MEAN CELL VOLUME 87.5 FL (80.0-100.0); MEAN CORPUSCULAR HEMOGLOBIN 29.2 PG (27.0-34.0); MEAN CORPUSCULAR HGB CONC 33.4 % (32.0-36.0); MEAN PLATELET VOLUME 7.7 FL (7.0-11.0); PLATELET COUNT 327 TH/MM3 (150-450); RED BLOOD COUNT 4.34 MIL/MM3 (4.00-5.30); RED CELL DISTRIBUTION WIDTH 14.2 % (11.6-17.2); WHITE BLOOD COUNT 6.5 TH/MM3 (4.0-11.0)
[2017-07-30] MEDS ORDERED: MAGNESIUM SULFATE 40 GM PREMIX 1,000 ML IV SCH (17:58)
[2017-07-30] MEDS ORDERED: LACTATED RINGER'S 1000 ML INJ 1,000 ML IV SCH (17:58)
[2017-07-30] MEDS ORDERED: SODIUM CHLORIDE 0.9% FLUSH 10 ML FLUSH IV FLUSH PRN ×2 (18:00)
[2017-07-30] MEDS ORDERED: ZOLPIDEM TARTRATE 5 MG TAB PO PRN (18:00)
[2017-07-30] MEDS ORDERED: CALCIUM GLUCONATE 10% 1 GM/10 ML VIAL IV PUSH PRN (18:00)
[2017-07-30] MEDS ORDERED: MAGNESIUM SULFATE 4 GM PREMIX 100 ML IV ONE (18:00)
[2017-07-30] MEDS ORDERED: hydrALAZINE HCL 20 MG/ML VIAL IV PUSH PRN ×2 (18:00→18:30)
[2017-07-30] MEDS ORDERED: ONDANSETRON ODT 4 MG TAB PO PRN (18:00)
[2017-07-30] MEDS ORDERED: NIFEdipine 10 MG CAP PO PRN (18:00)
[2017-07-30] MEDS ORDERED: ACETAMINOPHEN 325 MG TAB PO PRN (18:00)
[2017-07-30 18:01] LABS: BACTERIA, URINE OCC /hpf; BILIRUBIN, URINE NEG (NEG); BLOOD, URINE LARGE (NEG); GLUCOSE,URINE NEG (NEG); KETONE, URINE TRACE mg/dL (NEG); MUCUS URINE FEW /lpf (OCC); NITRITE,URINE NEG (NEG); SQUAMOUS EPITHELIAL CELL URINE 1 /hpf (0-5); URINE COLOR YELLOW (YELLW/STRAW); URINE LEUKOCYTE ESTERASE MOD (NEG)
[2017-07-30] MEDS ORDERED: NIFEdipine 10 MG CAP ONE (18:09)
[2017-07-30 18:52] LABS: ALBUMIN 3.4 GM/DL (3.4-5.0); ALKALINE PHOSPHATASE 95 U/L (45-117); ALT (GPT) 22 U/L (10-53); AST (GOT) 20 U/L (15-37); BICARBONATE 26.4 MEQ/L (21.0-32.0); BLOOD UREA NITROGEN 6 MG/DL (7-18); CALCIUM 8.9 MG/DL (8.5-10.1); CHLORIDE 106 MEQ/L (98-107); CREATININE 0.83 MG/DL (0.50-1.00); GLOMERULAR FILTRATION RATE 92 ML/MIN (>89); GLUCOSE,RANDOM 81 MG/DL (74-106); SODIUM (NA) 144 MEQ/L (136-145); TOTAL PROTEIN 7.4 GM/DL (6.4-8.2)
[2017-07-30] MEDS ORDERED: LABETALOL HCL 300 MG TAB PO SCH (20:00)
[2017-07-30] MEDS ORDERED: SODIUM CHLORIDE 0.9% FLUSH 10 ML FLUSH IV FLUSH SCH ×2 (21:00)
[2017-07-31] MEDS ORDERED: MULTIVIT/MIN/PREN/FOL AC/IRON PRENATAL TAB PO SCH (09:00)
[2017-07-31] MEDS ORDERED: NIFEdipine 30 MG SUSTAINED RELEASE TAB PO SCH (09:00)
[2017-07-31] MEDS ORDERED: DOCUSATE SODIUM 100 MG CAP PO SCH (09:00)
== END 2017-07-30 19:29 | disposition left against medical advice (07) ==
LOC: HOBED 16:53 → H2EB 18:15
PROVIDERS: ADMIT Obstetrics & Gynecology; ATTEND Obstetrics & Gynecology
DX: O10.93 Unspecified pre-existing hypertension complicating the puerperium (principal)
CPT/HCPCS: 80053; 80307; 81001; 84550; 85027; 99285; G0378